=== PATIENT | male | born 1960 | race African-American/Black ===

== ENCOUNTER 2024-02-05 08:23 | Outpatient (CLI) | payer OTHER | END 2024-02-05 08:24 | disposition home or self-care (01) | LOC: CSHSLEEP 08:23 | PROVIDERS: ATTEND Internal Medicine Critical Care Medicine | DX: G47.33 Obstructive sleep apnea (adult) (pediatric) (principal); R53.83 Other fatigue; I10 Essential (primary) hypertension; G47.31 Primary central sleep apnea; R09.02 Hypoxemia | CPT/HCPCS: 95801 ==

== ENCOUNTER 2024-04-07 09:02 | Outpatient (CLI) | payer OTHER | END 2024-04-07 09:03 | disposition home or self-care (01) | LOC: CSHSLEEP 09:02 | PROVIDERS: ATTEND Internal Medicine Critical Care Medicine | DX: G47.33 Obstructive sleep apnea (adult) (pediatric) (principal); R53.83 Other fatigue; I12.0 Hypertensive chronic kidney disease with stage 5 chronic kidney disease or end stage renal disease; E11.22 Type 2 diabetes mellitus with diabetic chronic kidney disease; N18.6 End stage renal disease; G47.00 Insomnia, unspecified; G47.61 Periodic limb movement disorder | CPT/HCPCS: 95811 ==